=== PATIENT | female | born 1985 | race American Indian/Alaskan Native ===

== ENCOUNTER 2016-07-10 18:50 | Emergency (ER) | payer OTHER ==
[2016-07-10 19:08] VITALS: BP 147/73
[2016-07-10] MEDS ORDERED: hyperRAB S/D IM ONE (22:05)
--- NOTE | 2016-07-10 22:10 | Emergency Department Report ---
ED Animal Bite HPI - General Chief Complaint: Animal Bite Stated Complaint: DOG BITE Time Seen by Provider: 07/10/16 22:04 Source: patient Mode of arrival: Ambulatory Limitations: No Limitations - History of Present Illness Initial Comments: 31-year-old female comes in for been bitten by a dog to her right hand approximate 5:30 PM today. Patient reports that some unknown dog and [place]. Patient reports that she complained the area with alcohol and bleach. She does report that she talked to [facility] [employer]. Patient denies any fever or chills. MD Complaint: animal bite Right: Hand Animal: dog Animal Control Notified: Yes Description: unknown animal, immunizations UTD Mechanism: bite Severity scale (0 -10): 6 Context: unprovoked Associated Symptoms: none Treatments Prior to Arrival: irrigation - Related Data Home Medications Medication Instructions Recorded Confirmed Last Taken Imiquimod [Imiquimod] 1 applicatio 5XW 07/31/16 08/04/16 1 Week Ago Previous Rx's Medication Instructions Recorded Last Taken Type Lidocaine Viscous 2% 15 ml MM BID #1 udc 08/04/16 Unknown Rx Silver Sulfadiazine 50 gm TP BID #1 cream..g. 08/04/16 Unknown Rx Valacyclovir HCl [Valtrex] 500 mg PO DAILY #30 tab 08/04/16 Unknown Rx Allergies Allergy/AdvReac Type Severity Reaction Status Date / Time No Known Allergies Allergy Verified 07/31/16 13:26 ED Review of Systems ROS: Stated complaint: DOG BITE Other details as noted in HPI Skin: other ED Past Medical Hx - Past Medical History Additional medical history: GENITAL WARTS - Surgical History Past Surgical History?: No - Social History Smoking Status: Never Smoker Substance Use Type: None - Medications Home Medications: Home Medications Medication Instructions Recorded Confirmed Last Taken Type Imiquimod [Imiquimod] 1 applicatio 5XW 07/31/16 08/04/16 1 Week Ago History Lidocaine Viscous 2% 15 ml MM BID #1 udc 08/04/16 Unknown Rx Silver Sulfadiazine 50 gm TP BID #1 cream..g. 08/04/16 Unknown Rx Valacyclovir HCl [Valtrex] 500 mg PO DAILY #30 tab 08/04/16 Unknown Rx ED Physical Exam - General Limitations: No Limitations - Neurological Exam Neurological exam: Present: alert, oriented X3, normal gait - Psychiatric Psychiatric exam: Present: normal affect, normal mood - Skin Skin exam: Present: other (right hand several superficial openings to the dorsum side, tenderness with palpation very minimal swelling. Mildy erythematous. Cappillary refill is less than 2 pulses are noted) ED Course Vital Signs 07/10/16 18:57 Temperature 99.3 F Pulse Rate 100 H Respiratory 18 Rate Blood Pressure 147/73 O2 Sat by Pulse 100 Oximetry Critical care attestation.: If time is entered above; I have spent that time in minutes in the direct care of this critically ill patient, excluding procedure time. ED Disposition Clinical Impression: Animal bite of hand Qualifiers: Encounter type: initial encounter Laterality: right Qualified Code(s): S61.451A - Open bite of right hand, initial encounter Disposition: DISCHARGED TO HOME OR SELFCARE Is pt being admited?: No Does the pt Need Aspirin: No Condition: Stable Additional Instructions: please return on 07/13/16 for your second treatment for rabies. keep area clean and dry. Return to the ER if site becomes red or inflamed or swelling. Complete all antibiotics as prescribed. Referrals: DARCY SCHRADER MD [Primary Care Provider] - 3-5 Days LITO QUIJANO MD [Staff Physician] - 3-5 Days Forms: Work/School Release Form(ED)
[2016-07-10] MEDS ORDERED: RABAVERT RABIES VACCINE(PCEC) IM ONE (22:16)
[2016-07-10] MEDS ORDERED: BOOSTRIX IM ONE (23:11)
== END 2016-07-11 00:10 | disposition home or self-care (01) ==
LOC: ED 18:50
DX: S61.451A Open bite of right hand, initial encounter (principal); W54.0XXA Bitten by dog, initial encounter; Y93.9 Activity, unspecified; Y99.9 Unspecified external cause status; Y92.89 Other specified places as the place of occurrence of the external cause
CPT/HCPCS: 90375; 90471; 90675; 90715

== ENCOUNTER 2016-08-04 07:46 | Day surgery (SDC) | payer OTHER ==
[~2016-08-04 07:46] MED LIST: ZOFRAN IV PRN
[2016-08-04] MEDS ORDERED: PEPCID PO NR (08:00)
[2016-08-04] MEDS ORDERED: LACTATED RINGERS 1,000 ML IV SCH (08:00)
[2016-08-04] MEDS ORDERED: VERSED IV NR (08:00)
--- NOTE | 2016-08-04 08:39 | Anesthesia Day of Surgery ---
Anesthesia Day of Surgery - Day of Surgery Patient Examined: Yes Patient H&P Reviewed: Yes Patient is NPO: Yes
--- NOTE | 2016-08-04 08:40 | Anesthesia Consultation ---
Anesthesia Consult and Med Hx Date of service: 08/04/16 - Airway Anesthetic Teeth Evaluation: Good ROM Head & Neck: Adequate Mental/Hyoid Distance: Adequate Mallampati Class: Class II Intubation Access Assessment: Probably Good - Pulmonary Exam CTA: Yes - Cardiac Exam Cardiac Exam: RRR - Pre-Operative Health Status ASA Pre-Surgery Classification: ASA2 Proposed Anesthetic Plan: General - Pulmonary Hx Smoking: Yes (black n milds) Hx Asthma: Yes (as a child) - Cardiovascular System Hx Hypertension: No Hx Coronary Artery Disease: No - Central Nervous System Hx Seizures: No CVA: No Hx Psychiatric Problems: No - Endocrine Hx Renal Disease: No Hx Cirrhosis: No Hx Hypothyroidism: No - Other Systems Hx Alcohol Use: Yes (occas) Hx Cancer: No
[2016-08-04] MEDS ORDERED: NACL BACTERIOSTATIC INFILTRATI ONE (08:54)
[2016-08-04 09:36] LABS: Hematocrit 33.6 % (30.3-42.9); Hemoglobin 10.4 gm/dl (10.1-14.3)
[2016-08-04] MEDS ORDERED: DIPRIVAN 10 MG/ML IV ONE (10:31)
[2016-08-04] MEDS ORDERED: XYLOCAINE MPF 2% ONE (10:31)
[2016-08-04] MEDS ORDERED: DILAUDID ONE (10:32)
--- NOTE | 2016-08-04 10:35 | Short Stay Summary ---
Short Stay Documentation Date of service: 08/04/16 Narrative H&P: Pt is a 31yo BF LMP 07/21/16 presents for surgical removal of extensive vaginal condylomatas. Pt has used Aldara cream without much relief. - History Principal diagnosis: Vaginal condylomas H&P: obtained from office Past Medical History: No medical history Past Surgical History: No surgical history Social history: no significant social history, single - Allergies and Medications Current Medications: Allergies No Known Allergies Allergy (Verified 07/31/16 13:26) Home Medications Medication Instructions Recorded Confirmed Last Taken Type Imiquimod [Imiquimod] 1 applicatio 5XW 07/31/16 08/04/16 1 Week Ago History Active Medications Famotidine (Pepcid) 20 mg PO PREOP NR Stop: 08/04/16 23:59 Last Admin: 08/04/16 09:00 Dose: 20 mg Hydromorphone HCl (Dilaudid) 0.5 mg IV Q10MIN PRN PRN Reason: Pain , Severe (7-10) Stop: 08/04/16 23:59 Lactated Ringer's (Lactated Ringers) 1,000 mls @ 75 mls/hr IV DIRECT ERYN Stop: 08/04/16 23:59 Last Admin: 08/04/16 09:05 Dose: 75 mls/hr Cefazolin Sodium (Ancef/Sterile Water 2 Gm/20 Ml) 20 mls @ 80 mls/hr IV PREOP NR PRN Reason: Protocol Midazolam HCl (Versed) 2 mg IV PREOP NR Stop: 08/04/16 23:59 Ondansetron HCl (Zofran) 4 mg IV ONCE PRN PRN Reason: Nausea And Vomiting Stop: 08/04/16 23:59 - Physical exam General appearance: no acute distress Integumentary: no rash HEENT: Atraumatic Lungs: Clear to auscultation Breasts: deferred Heart: Regular rate Gastrointestinal: normal Female Genitourinary: lesions (extensive vaginal condylomas) Rectal Exam: deferred Extremities: No edema Neurological: Normal gait, Normal speech - Brief post op/procedure progress note Date of procedure: 08/04/16 Pre-op diagnosis: Extensive vaginal condylomas Post-op diagnosis: same Procedure: Laser ablation of extensive vaginal condylomas Anesthesia: MAC Findings: Extensive vaginal condylomas on the perineum, right and left vulvas Surgeon: WEST CAICEDO Estimated blood loss: minimal Pathology: none Condition: stable - Hospital course Hospital course: Unremarkable. - Disposition Condition at discharge: Good Disposition: DISCHARGED TO HOME OR SELFCARE - Discharge Diagnoses (1) Vaginal condyloma Status: Resolved Short Stay Discharge Plan Activity: no restrictions Diet: regular Wound: open to air, keep clean and dry Follow up with: PRIMARY CARE, [Primary Care Provider] - 7 Days WEST CAICEDO MD [Staff Physician] - 14 Days Prescriptions: Lidocaine Viscous 2% 15 ml MM BID #1 udc Silver Sulfadiazine 50 gm TP BID #1 cream..g. Valacyclovir HCl [Valtrex] 500 mg PO DAILY #30 tab
[2016-08-04] MEDS ORDERED: ANCEF/STERILE WATER 2 GM/20 ML 2 GM/20 ML SYRINGE IV NR (11:00)
[2016-08-04] MEDS ORDERED: ZOFRAN ONE (11:11)
[2016-08-04] MEDS ORDERED: THERMAZENE 50 GRAM TP ONE (11:15)
[2016-08-04] MEDS ORDERED: XYLOCAINE TOPICAL 2% MM ONE (11:31)
[2016-08-04] MEDS ORDERED: WATER FOR IRRIG STERILE IR ONE (11:32)
--- NOTE | 2016-08-04 11:34 | Operative Report ---
Operative Report Operative Report: Date of procedure: 08/04/2016 Pre-operative diagnosis: Extensive vaginal condylomas Post-operative diagnosis: Same Procedure name(s): Laser ablation of extensive vaginal condylomas Surgeon: Chris Turner MD Bolt Cutter: None Anesthesia: General Mac by Dr. Duran EBL: Minimal Findings: Extensive perineal condylomas including the left and right vulvas Procedure: After the patient was correctly identified, she was prepped and draped in usual sterile fashion using wet towels for draping. The bladder was first emptied using a straight catheter. The carbon dioxide laser was set at 10 was continuous and tested. It was then used to ablate the perineum where the extensive perineal condylomas including the left and right vulvas were. After all the condylomas were ablated the procedure was considered complete. A mixture of Silvadene cream with viscous lidocaine was used to cover the perineum including the vulvas. She tolerated the procedure well was transported to recovery in stable condition.
[2016-08-04] MEDS: DILAUDID IV PRN ×2 (11:45→12:07)
[2016-08-04 13:01] VITALS: BP 133/80
--- NOTE | 2016-08-04 14:45 | Post Anesthesia Evaluation ---
- Post Anesthesia Evaluation Patient Participated: Yes Airway Patent: Yes Stable Respiratory Function: Yes Nausea/Vomiting: No Temp > 96.8F: Yes Pain Manageable: Yes Adequeate Hydration: Yes Anesthesia Complications: No Block Receding Appropriately: Not Applicable Patient on Ventilator: No
== END 2016-08-04 13:22 | disposition home or self-care (01) ==
LOC: OR 07:46
PROVIDERS: ATTEND Obstetrics & Gynecology
DX: A63.0 Anogenital (venereal) warts (principal); J45.909 Unspecified asthma, uncomplicated; F17.210 Nicotine dependence, cigarettes, uncomplicated; Z72.89 Other problems related to lifestyle
CPT/HCPCS: 36415; 57065; 85014; 85018; J0690; J1170; J2250; J2405; J2704; J7120; 81025

== ENCOUNTER 2018-01-25 18:22 | Emergency (ER) | payer OTHER ==
[2018-01-25 18:58] VITALS: BP 125/84
[2018-01-25 19:41] LABS: Basophils % (Auto) 0.7 % (0.0-1.8); Eosinophils # (Auto) 0.2 K/mm3 (0.0-0.4); Eosinophils % (Auto) 2.9 % (0.0-4.3); Hematocrit 37.2 % (30.3-42.9); Hemoglobin 11.9 gm/dl (10.1-14.3); Lymphocytes # (Auto) 2.7 K/mm3 (1.2-5.4); Lymphocytes % (Auto) 42.6 % (13.4-35.0); Mean Corpuscular HGB Conc 32 % (30-34); Mean Corpuscular Hemoglobin 28 pg (28-32); Mean Corpuscular Volume 87 fl (79-97); Monocytes # (Auto) 0.5 K/mm3 (0.0-0.8); Monocytes % (Auto) 7.9 % (0.0-7.3); Platelet Count 147 K/mm3 (140-440); Red Blood Count 4.29 M/mm3 (3.65-5.03); Red Cell Distribution Width 14.6 % (13.2-15.2)
[2018-01-25 20:12] LABS: BUN/Creatinine Ratio 13; Blood Urea Nitrogen 8 mg/dL (7-17); Hemolysis Index 5
== END 2018-01-25 23:58 | disposition left against medical advice (07) ==
LOC: ED 18:22
DX: R55 Syncope and collapse (principal); Z53.21 Procedure and treatment not carried out due to patient leaving prior to being seen by health care provider
CPT/HCPCS: 36415; 80048; 84484; 85025; 93005; 93010; 99282; 99284

== ENCOUNTER 2020-08-18 04:46 | Outpatient (CLI) | payer OTHER ==
[2020-08-18 05:07] VITALS: BP 123/62
[2020-08-18] MEDS ORDERED: LACTATED RINGERS 1,000 ML IV ONE (05:20)
[2020-08-18 06:46] LABS: Bacteria,Urine 2+ /HPF (Negative); Bilirubin,Urine NEG (Negative); Blood,Urine NEG (Negative); Color,Urine Yellow (Yellow); Mucus,Urine 2+ /HPF
== END 2020-08-18 07:30 | disposition home or self-care (01) ==
LOC: TRG 04:46 → APU 04:51 → TRG 07:30
PROVIDERS: ATTEND Obstetrics & Gynecology
DX: O26.892 Other specified pregnancy related conditions, second trimester (principal); R10.9 Unspecified abdominal pain; O99.342 Other mental disorders complicating pregnancy, second trimester; F41.9 Anxiety disorder, unspecified; O09.522 Supervision of elderly multigravida, second trimester; Z3A.23 23 weeks gestation of pregnancy; Z87.891 Personal history of nicotine dependence
CPT/HCPCS: 59025; 81001; 96360; J7120

== ENCOUNTER 2020-09-14 21:45 | Emergency (ER) | payer OTHER ==
[2020-09-14 22:24] VITALS: BP 124/71
[2020-09-14 22:48] LABS: Basophils # (Auto) 0.1 K/mm3 (0.0-0.1); Basophils % (Auto) 0.5 % (0.0-1.8); Eosinophils # (Auto) 0.1 K/mm3 (0.0-0.4); Eosinophils % (Auto) 1.3 % (0.0-4.3); Hematocrit 33.1 % (30.3-42.9); Hemoglobin 10.7 gm/dl (10.1-14.3); Lymphocytes # (Auto) 1.7 K/mm3 (1.2-5.4); Lymphocytes % (Auto) 15.6 % (13.4-35.0); Mean Corpuscular HGB Conc 32 % (30-34); Mean Corpuscular Volume 87 fl (79-97); Monocytes # (Auto) 0.6 K/mm3 (0.0-0.8); Monocytes % (Auto) 5.8 % (0.0-7.3); Platelet Count 168 K/mm3 (140-440); Red Blood Count 3.79 M/mm3 (3.65-5.03); Red Cell Distribution Width 14.2 % (13.2-15.2)
[2020-09-14 23:12] LABS: Alanine Aminotransferase 29 units/L (7-56); Blood Urea Nitrogen 9 mg/dL (7-17); Calcium 8.4 mg/dL (8.4-10.2); Hemolysis Index 3
[2020-09-14 23:25] LABS: Bacteria,Urine 1+ /HPF (Negative); Bilirubin,Urine NEG (Negative); Blood,Urine NEG (Negative); Color,Urine Yellow (Yellow); Protein,Urine <15 mg/dL mg/dL (Negative); Urobilinogen,Urine < 2.0 mg/dL (<2.0)
[2020-09-15 00:03] LABS: BUN/Creatinine Ratio 18
--- NOTE | 2020-09-15 00:34 | Emergency Department Report ---
ED General Adult HPI - General Chief complaint: Recheck/Abnormal Lab/Rx Stated complaint: HIGH BLOOD PRESSURE;27WKS Source: patient Mode of arrival: Ambulatory Limitations: No Limitations - History of Present Illness Initial comments: Patient is a A1 35-year-old -Maldivian female who is approximately 27 weeks gestation who presents to the ED for evaluation after noticing that she had elevated blood pressure during her [employer] physician appointment about 8 ho urs ago. Patient states that at the time she was annoyed by the kind of treatment she got in that office and left the building without signing paperwork in anger after her blood pressure was noticeably high. Patient states that thereafter she went to [facility] and checked her blood pressure at home on public blood pressure machine which also revealed that it was high. Patient states that she then decided come to the ED for evaluation. Patient however denies abdominal pain, vaginal bleeding, dysuria, urinary frequency and urgency, chest pain, shortness of breath, dizziness, headache, seizures, cough, diarrhea, low back pain or vaginal discharge. MD Complaint: Elevated Blood pressure, 27 weeks gestation -: Sudden, hour(s) (8) Location: head Radiation: non-radiation Severity scale (0 -10): 0 Consistency: constant Worsens with: none Associated Symptoms: denies other symptoms. denies: confusion, chest pain, cough, diaphoresis, fever/chills, headaches, loss of appetite, malaise, nausea/vomiting, rash, shortness of breath, syncope, weakness Treatments Prior to Arrival: none - Related Data Home Medications Medication Instructions Recorded Confirmed Last Taken Imiquimod 1 applicatio 5XW 07/31/16 08/04/16 1 Week Ago ~07/28/16 Previous Rx's Medication Instructions Recorded Last Taken Type Lidocaine Viscous 2% 15 ml MM BID #1 udc 08/04/16 Unknown Rx Silver Sulfadiazine 50 gm TP BID #1 cream..g. 08/04/16 Unknown Rx Valacyclovir HCl [Valtrex] 500 mg PO DAILY #30 tab 08/04/16 Unknown Rx Allergies Allergy/AdvReac Type Severity Reaction Status Date / Time No Known Allergies Allergy Verified 07/31/16 13:26 ED Review of Systems ROS: Stated complaint: HIGH BLOOD PRESSURE;27WKS Other details as noted in HPI Constitutional: malaise, other (Elevated blood pressure). denies: chills, fever Eyes: denies: eye pain, eye discharge, vision change ENT: denies: ear pain, throat pain Respiratory: denies: cough, shortness of breath, wheezing Cardiovascular: denies: chest pain, palpitations Endocrine: no symptoms reported Gastrointestinal: denies: abdominal pain, nausea, diarrhea Genitourinary: denies: urgency, dysuria, discharge Musculoskeletal: denies: back pain, joint swelling, arthralgia Skin: denies: rash, lesions Neurological: denies: headache, weakness, paresthesias Psychiatric: anxiety. denies: depression Hematological/Lymphatic: denies: easy bleeding, easy bruising ED Past Medical Hx - Past Medical History Hx Hypertension: No Hx Renal Disease: No Hx Headaches / Migraines: Yes Hx Seizures: No Hx Asthma: Yes (as a child) Hx HIV: No Additional medical history: GENITAL WARTS - Surgical History Past Surgical History?: No - Social History Smoking Status: Never Smoker Substance Use Type: None - Medications Home Medications: Home Medications Medication Instructions Recorded Confirmed Last Taken Type Imiquimod 1 applicatio 5XW 07/31/16 08/04/16 1 Week Ago History ~07/28/16 Lidocaine Viscous 2% 15 ml MM BID #1 udc 08/04/16 Unknown Rx Silver Sulfadiazine 50 gm TP BID #1 cream..g. 08/04/16 Unknown Rx Valacyclovir HCl [Valtrex] 500 mg PO DAILY #30 tab 08/04/16 Unknown Rx ED Physical Exam - General Limitations: No Limitations General appearance: alert, in no apparent distress - Head Head exam: Present: atraumatic, normocephalic, normal inspection - Eye Eye exam: Present: normal appearance, PERRL, EOMI Pupils: Present: normal accommodation - ENT ENT exam: Present: normal exam, normal orophraynx, mucous membranes moist, TM's normal bilaterally, normal external ear exam - Neck Neck exam: Present: normal inspection, full ROM - Respiratory Respiratory exam: Present: normal lung sounds bilaterally. Absent: respiratory distress, wheezes, rales, stridor, chest wall tenderness, accessory muscle use, decreased breath sounds - Cardiovascular Cardiovascular Exam: Present: regular rate, normal rhythm, normal heart sounds. Absent: systolic murmur, diastolic murmur, rubs, gallop - GI/Abdominal GI/Abdominal exam: Present: soft, normal bowel sounds. Absent: tenderness, guarding, hyperactive bowel sounds, hypoactive bowel sounds - Extremities Exam Extremities exam: Present: normal inspection, full ROM, normal capillary refill - Back Exam Back exam: Present: normal inspection, full ROM. Absent: tenderness, CVA tenderness (R), CVA tenderness (L), muscle spasm, paraspinal tenderness, vertebral tenderness - Neurological Exam Neurological exam: Present: alert, oriented X3, CN II-XII intact, normal gait, reflexes normal - Psychiatric Psychiatric exam: Present: normal affect, normal mood, anxious - Skin Skin exam: Present: warm, dry, intact, normal color. Absent: rash ED Course Vital Signs 09/14/20 09/14/20 22:17 22:18 Temperature 97.8 F Pulse Rate 90 86 Respiratory 18 Rate Blood Pressure 124/71 O2 Sat by Pulse 100 97 Oximetry ED Medical Decision Making - Lab Data Result diagrams: 09/14/20 22:28 09/14/20 22:28 - Medical Decision Making This is a A1 35-year-old -Maldivian female who is approximately 27 weeks gestation who presents to the ED for evaluation after noticing that she had elevated blood pressure during her [employer] physician appointment about 8 hours ago. Patient states that at the time she was annoyed by the kind of treatment she got in that office and left the building without signing paperwork in anger after her blood pressure was noticeably high. Patient states that thereafter she went to [facility] and checked her blood pressure at home on public blood pressure machine which also revealed that it was high. Patient states that she then decided come to the ED for evaluation. In the ED, patient is alert and oriented x3 and is not in distress. Patient's vital signs are stable and are within normal limits. Lab test results were reviewed and are all nonactionable including urinalysis. Patient was therefore discharged home and advised to follow-up with her [employer] physician as previously scheduled. Patient is advised return to the ED immediately if her symptoms get worse. - Differential Diagnosis Preeclampsia; UTI; anxiety Critical care attestation.: If time is entered above; I have spent that time in minutes in the direct care of this critically ill patient, excluding procedure time. ED Disposition Clinical Impression: Encounter for well adult exam without abnormal findings, Normal blood pressure Disposition: -01 TO HOME OR SELFCARE Is pt being admited?: No Does the pt Need Aspirin: No Condition: Stable Instructions: Medical Screening Exam, Health Maintenance, Female Additional Instructions: All lab test results were reviewed and are all nonactionable. Your vital signs are stable including blood pressure. Therefore follow-up with your [employer] physician as previously scheduled. Return to the ED immediately if symptoms get worse. Referrals: SARY CRUZ MD [Referring] - 3-5 Days Time of Disposition: 00:30 Print Language: BHUTANESE
== END 2020-09-15 00:50 | disposition home or self-care (01) ==
LOC: ED 21:45
DX: O26.892 Other specified pregnancy related conditions, second trimester (principal); R03.0 Elevated blood-pressure reading, without diagnosis of hypertension; G43.909 Migraine, unspecified, not intractable, without status migrainosus; J45.909 Unspecified asthma, uncomplicated; Z3A.27 27 weeks gestation of pregnancy; Z79.899 Other long term (current) drug therapy
CPT/HCPCS: 36415; 80053; 81001; 85025

== ENCOUNTER 2020-10-09 04:52 | Emergency (ER) | payer OTHER ==
[2020-10-09 04:58] VITALS: BP 126/87
== END 2020-10-09 06:20 | disposition left against medical advice (07) ==
LOC: ED 04:52
DX: R10.2 Pelvic and perineal pain (principal); Z53.21 Procedure and treatment not carried out due to patient leaving prior to being seen by health care provider

== ENCOUNTER 2022-03-10 14:34 | Emergency (ER) | payer SELFPAY ==
[2022-03-10 16:01] VITALS: BP 150/86
--- NOTE | 2022-03-10 16:21 | Emergency Department Report ---
ED General Adult HPI - General Chief complaint: Dental/Oral Stated complaint: TOOTHACHE / SWOLLEN FACE Time Seen by Provider: 03/10/22 16:09 Source: patient Mode of arrival: Ambulatory Limitations: No Limitations - History of Present Illness Initial comments: 37-year-old female no significant past medical history reports to the ER with complaints of left upper dental pain with molar decay. No airway concerns reported. No other acute clinical symptoms reported. Patient reports she has upcoming appointment with her dentist on the first week March. - Related Data Home Medications Medication Instructions Recorded Confirmed Last Taken Imiquimod 1 applicatio 5XW 07/31/16 08/04/16 1 Week Ago ~07/28/16 Previous Rx's Medication Instructions Recorded Last Taken Type Lidocaine Viscous 2% 15 ml MM BID #1 udc 08/04/16 Unknown Rx Silver Sulfadiazine 50 gm TP BID #1 cream..g. 08/04/16 Unknown Rx Valacyclovir HCl [Valtrex] 500 mg PO DAILY #30 tab 08/04/16 Unknown Rx Amoxicillin/K Clav Tab [Augmentin 1 tab PO Q12HR 7 Days #14 tab 03/10/22 Unknown Rx 875 mg] Allergies Allergy/AdvReac Type Severity Reaction Status Date / Time No Known Allergies Allergy Verified 07/31/16 13:26 ED Review of Systems ROS: Stated complaint: TOOTHACHE / SWOLLEN FACE Other details as noted in HPI Comment: All other systems reviewed and negative ENT: other (Dental pain left side upper) ED Past Medical Hx - Past Medical History Previous Medical History?: Yes Hx Hypertension: No Hx Renal Disease: No Hx Headaches / Migraines: Yes Hx Seizures: No Hx Asthma: Yes (as a child) Hx HIV: No Additional medical history: GENITAL WARTS - Surgical History Past Surgical History?: No - Social History Smoking Status: Never Smoker Substance Use Type: None - Medications Home Medications: Home Medications Medication Instructions Recorded Confirmed Last Taken Type Imiquimod 1 applicatio 5XW 07/31/16 08/04/16 1 Week Ago History ~07/28/16 Lidocaine Viscous 2% 15 ml MM BID #1 udc 08/04/16 Unknown Rx Silver Sulfadiazine 50 gm TP BID #1 cream..g. 08/04/16 Unknown Rx Valacyclovir HCl [Valtrex] 500 mg PO DAILY #30 tab 08/04/16 Unknown Rx Amoxicillin/K Clav Tab [Augmentin 1 tab PO Q12HR 7 Days #14 tab 03/10/22 Unknown Rx 875 mg] ED Physical Exam - General Limitations: No Limitations General appearance: alert, in no apparent distress - Head Head exam: Present: atraumatic, normocephalic - Eye Eye exam: Present: normal appearance - ENT ENT exam: Present: mucous membranes moist, other (left upper dental pain with decay. no abscess noted.) - Neck Neck exam: Present: normal inspection - Respiratory Respiratory exam: Present: normal lung sounds bilaterally. Absent: respiratory distress - Cardiovascular Cardiovascular Exam: Present: regular rate, normal rhythm. Absent: systolic murmur, diastolic murmur, rubs, gallop - GI/Abdominal GI/Abdominal exam: Present: soft, normal bowel sounds - Extremities Exam Extremities exam: Present: normal inspection - Back Exam Back exam: Present: normal inspection - Neurological Exam Neurological exam: Present: alert, oriented X3 - Psychiatric Psychiatric exam: Present: normal affect, normal mood - Skin Skin exam: Present: warm, dry, intact, normal color. Absent: rash ED Course Vital Signs 03/10/22 15:59 Temperature 98.7 F Pulse Rate 84 Respiratory 18 Rate Blood Pressure 150/86 [Left] O2 Sat by Pulse 99 Oximetry ED Medical Decision Making - Medical Decision Making 37-year-old female no significant past medical history reports to the ER with complaints of left upper dental pain with molar decay. No airway concerns reported. No other acute clinical symptoms reported. Patient reports she has upcoming appointment with her dentist on the first week March. Left upper dental back 2 molars with decay with minimal gum swelling. Tenderness is noted. No dental abscess noted. No concern for airway issues. Patient to be started on Augmentin 875 twice daily 7 days. Patient agrees with plan of care and verbalized understanding. Patient stable for discharge home. Patient will keep her upcoming dentist appointment for tooth removal evaluation. Patient is stable for discharge. Vital Signs 03/10/22 15:59 Temperature 98.7 F Pulse Rate 84 Respiratory 18 Rate Blood Pressure 150/86 [Left] O2 Sat by Pulse 99 Oximetry Critical care attestation.: If time is entered above; I have spent that time in minutes in the direct care of this critically ill patient, excluding procedure time. ED Disposition Clinical Impression: Dental infection, Pain, dental Disposition: 01 HOME / SELF CARE / HOMELESS Is pt being admited?: No Condition: Stable Instructions: Preventive Dental Care, Adult, Acute Pain, Adult Prescriptions: Amoxicillin/K Clav Tab [Augmentin 875 mg] 1 tab PO Q12HR 7 Days #14 tab
== END 2022-03-10 16:40 | disposition home or self-care (01) ==
LOC: ED 14:34
DX: K04.7 Periapical abscess without sinus (principal); J45.909 Unspecified asthma, uncomplicated; Z98.890 Other specified postprocedural states; Z79.899 Other long term (current) drug therapy
CPT/HCPCS: 99282